=== PATIENT | female | born 1960 | race African-American/Black ===

== ENCOUNTER 2019-02-28 13:18 | Emergency (ER) | payer OTHER ==
[2019-02-28 13:30] VITALS: BP 157/76; PULSE 83; TEMP 97.9; BMI 36.0
[2019-02-28] MEDS ORDERED: KETOROLAC TROMETHAMINE 30 MG/1 ML VIAL IM ONE (14:28)
[2019-02-28] MEDS ORDERED: KETOROLAC TROMETHAMINE 30 MG/1 ML VIAL ONE (14:33)
--- NOTE | 2019-02-28 14:35 | PDOC ---
History of Present Illness - General Chief Complaint: Pain Stated Complaint: RT SHOULDER PAIN Time Seen by Provider: 02/28/19 13:51 History Source: Patient Exam Limitations: No Limitations Past History - Travel Traveled outside of the country in the last 30 days: No Close contact w/someone who was outside of country & ill: No - Past Medical History Allergies/Adverse Reactions: Allergies Allergy/AdvReac Type Severity Reaction Status Date / Time No Known Allergies Allergy Verified 02/28/19 13:30 Home Medications: Ambulatory Orders Insulin Detemir [Levemir Flextouch] 20 unit SQ DAILY 02/21/15 Lisinopril [Prinivil -] 10 mg PO DAILY 02/21/15 Sitagliptin Phos/Metformin HCl [Janumet 50-500 mg Tablet] 1 tab PO BID 02/21/15 COPD: No Diabetes: Yes HTN: Yes - Psycho Social/Smoking Cessation Hx Smoking History: Never smoked Have you smoked in the past 12 months: No Information on smoking cessation initiated: No Hx Alcohol Use: No Drug/Substance Use Hx: No Substance Use Type: None Review of Systems - Review of Systems Able to Perform ROS?: Yes Comments:: 02/28/19 14:29 CONSTITUTIONAL: Absent: fever, chills, diaphoresis, generalized weakness, malaise, loss of appetite CARDIOVASCULAR: Absent: chest pain, loss of consciousness, palpitations, irregular heart rate, peripheral edema RESPIRATORY: Absent: cough, shortness of breath, dyspnea with exertion, orthopnea, wheezing, stridor, hemoptysis MUSCULOSKELETAL: Present: Right shoulder pain. Absent: myalgia, joint swelling SKIN: Absent: rash, itching, pallor NEUROLOGIC: Absent: headache, focal weakness or paresthesias, dizziness, unsteady gait, seizure, mental status changes, bladder or bowel incontinence PSYCHIATRIC: Absent: anxiety, depression, suicidal or homicidal ideation, hallucinations. Is the patient limited Tajik proficient: No *Physical Exam - Vital Signs Last Vital Signs Temp Pulse Resp BP Pulse Ox 97.9 F 83 16 157/76 100 02/28/19 13:20 02/28/19 13:20 02/28/19 13:20 02/28/19 13:20 02/28/19 13:20 - Physical Exam 02/28/19 14:30 GENERAL: The patient is awake, alert, and fully oriented, in no acute distress HEAD: Normal with no signs of trauma. EYES: Pupils equal, round and reactive to light, extraocular movements intact, sclera anicteric, conjunctiva clear. EXTREMITIES: Tenderness palpation of the proximal biceps tendon. Decreased ROM of the R shoulder d/t pain. Normal range of motion at all other joints. no edema. NEUROLOGICAL: Normal speech, normal gait. PSYCH: Normal mood, normal affect. SKIN: Warm, Dry, normal turgor, no rashes or lesions noted. Medical Decision Making - Medical Decision Making 02/28/19 14:59 Patient is a 58-year-old female with past medical history of diabetes, hypertension, presents to the ER today with right shoulder pain for the last 2 days. She states that on Wednesday she did a lot of cleaning and vacuuming. When she woke up on Wednesday she had right shoulder pain which is worse with movement. Denies fevers, chills, trauma, falling, chest pain, palpitations, difficulty breathing and chest tightness, numbness and weakness to the affected extremity. The patient is right-hand dominant. A/P: Tendinitis On exam decreased range of motion in the right shoulder due to pain. Able to passively range the shoulder to 100 degrees Pain with tenderness over the biceps tendon. Negative drop arm test, Colby's test. Although special test for the shoulder unable to perform due to pain X-ray shows calcified tendinitis, and bone cyst within the head of the humerus as read by myself Likely a tendinitis vs an impingment syndrome Toradol given with relief of symptoms Discharge home with Tylenol, stretching exercises and orthopedic follow-up I discussed the physical exam findings, ancillary test results and final diagnoses with the patient. I answered all of the patient's questions. The patient was satisfied with the care received and felt comfortable with the discharge plan and treatment plan. The Patient agrees to follow up with the primary care physician/specialist within 24-72 hours. Return precautions were given. Discharge - Discharge Information Problems reviewed: Yes Clinical Impression/Diagnosis: Shoulder pain Qualifiers: Chronicity: acute Laterality: right Qualified Code(s): M25.511 - Pain in right shoulder Condition: Stable Disposition: HOME - Admission No - Follow up/Referral Referrals: Doc Kohler MD [Staff Physician] - - Patient Discharge Instructions Patient Printed Discharge Instructions: DI for Shoulder Pain Additional Instructions: You were evaluated for your shoulder pain today. It is most likely a tendinitis or impingement of the ligaments in the shoulder. Your x-ray did not show any broken bones Please take Tylenol 650 mg every 6 hours as needed for pain. Please follow-up with orthopedics next week. Return to the ER for worsening pain, numbness and tingling in the extremity or if you have any changes in your symptoms. - Post Discharge Activity
== END 2019-02-28 15:19 | disposition home or self-care (01) ==
LOC: JERFT 13:18
PROC: 3E0233Z Introduction of Anti-inflammatory into Muscle, Percutaneous Approach (ICD-10-PCS; principal; 2019-02-28)
DX: M25.511 Pain in right shoulder (principal); E11.9 Type 2 diabetes mellitus without complications; I10 Essential (primary) hypertension
CPT/HCPCS: 73030-TC-RT-FY; 99282-25

== ENCOUNTER 2021-03-20 14:58 | Emergency (ER) | payer OTHER ==
[2021-03-20 15:13] VITALS: BP 157/80; PULSE 92; TEMP 97.9; BMI 36.0
[2021-03-20] MEDS ORDERED: KETOROLAC TROMETHAMINE 30 MG/1 ML VIAL IM ONE (15:40)
[2021-03-20] MEDS ORDERED: KETOROLAC TROMETHAMINE 30 MG/1 ML VIAL ONE (15:49)
== END 2021-03-20 15:55 | disposition home or self-care (01) ==
LOC: JERFT 14:58
PROC: 3E0233Z Introduction of Anti-inflammatory into Muscle, Percutaneous Approach (ICD-10-PCS; principal; 2021-03-20)
DX: M25.531 Pain in right wrist (principal)
CPT/HCPCS: 99284-25

== ENCOUNTER → 2024-04-13 | Day surgery (SDC) | payer OTHER | END | disposition home or self-care (01) | LOC: JRADIR 10:03 | PROVIDERS: ATTEND Internal Medicine Endocrinology, Diabetes & Metabolism | PROC: 0G9G3ZX Drainage of Left Thyroid Gland Lobe, Percutaneous Approach, Diagnostic (ICD-10-PCS; principal; 2024-04-13) | DX: E04.1 Nontoxic single thyroid nodule (principal) | CPT/HCPCS: 10005; 76942; 88173; 88305-TC ==